=== PATIENT | female | born 1985 | race Caucasian/White ===

== ENCOUNTER 2017-12-27 08:00 | Inpatient (IN) ==
[2017-12-27] MEDS ORDERED: Metoclopramide 10 MG/2 ML VIAL IVP PRN (09:13)
[2017-12-27] MEDS ORDERED: Ondansetron 4 MG/2 ML VIAL IVP PRN (09:13)
[2017-12-27] MEDS ORDERED: Famotidine 20 MG/2 ML VIAL IVP PRN (09:13)
[2017-12-27] MEDS ORDERED: *HR* Nalbuphine 10 MG/ML AMPUL IVP PRN (09:13)
[2017-12-27] MEDS ORDERED: Ringers Solution, Lactated 1,000 ML IVC SCH (09:15)
[2017-12-27] MEDS ORDERED: Oxytocin 20 units/ LR 1000 mL 20 UNIT/1,000 ML BAG IVC SCH ×2 (09:15→20:12)
[2017-12-27] MEDS ORDERED: Penicillin G Potassium 5,000,000 UNIT in 0.9 % Sodium Chloride Mini Bag 100 ML IVPB ONE (09:30)
[2017-12-27 09:36] LABS: Basophils % 0.2 %; Eosinophils # 0.1 K/mcL (0.0-0.6); Eosinophils % 0.9 %; Hematocrit 37.8 % (35.3-44.9); Hemoglobin 12.6 g/dL (11.5-15.4); Immature Granulocytes % 0.5 % (0-4); Lymphocytes % 20.7 %; Mean Corpuscular HGB Conc 33.3 g/dL (31.6-35.5); Mean Corpuscular Volume 86.9 fL (83.0-100.0); Mean Platelet Volume 11.5 fL (9.4-12.4); Monocytes # 0.7 K/mcL (0.0-1.3); Neutrophils # 6.9 K/mcL (1.6-8.9); Platelet Count 193 K/mcL (140-400); Red Blood Count 4.35 M/mcL (3.82-4.97); Red Cell Distribution Width 14.6 % (11.5-14.5); Segmented Neutrophils % 70.7 %
[2017-12-27 10:49] LABS: Amphetamine Screen,Urine Negative ng/mL (Cutoff=1000); Barbiturate Screen,Urine Negative ng/mL (Cutoff=200); Benzodiazepines Screen,Urine Negative ng/mL (Cutoff=200); Cannabinoid Screen,Urine Negative ng/mL (Cutoff = 50); Cocaine Screen,Urine Negative ng/mL (Cutoff= 300); Opiate Screen,Urine Negative ng/mL (Cutoff=300); Phencyclidine Screen,Urine Negative ng/mL (Cutoff=25)
--- NOTE | 2017-12-27 11:44 | OB/GYN History & Physical ---
Date of Encounter: 12/27/17 Time of Encounter: 11:30 Assessment and Plan (1) 39 weeks gestation of Current visit: Yes Status: Acute (2) Elective induction of labor planned Current visit: Yes Status: Acute Admit to labor and delivery Pitocin per policy Obtain POC glucose times one Nubain and epidural as desired GBS unknown, penicillin protocol Anticipate (3) Gestational diabetes Current visit: Yes Status: Acute unmonitored and untreated in Qualifiers: Gestational diabetes mellitus control: unspecified Trimester: third trimester Qualified Code(s): O24.419 - Gestational diabetes mellitus in , unspecified control History of Present Illness Chief complaint: induction of labor HPI: Ms. Del Valle is a 32 year old female at 39+1 here for elective induction of labor. care managed by Dr. Valdez, course complicated by untreated and unmonitored gestational diabetes, patient states she does not check her blood sugars, patient states that A1c checked twice and was 5.8/6.0, no documentation of these results were found. Otherwise uncomplicated course. Patient reports good movement without vaginal bleeding, leakage of fluids, or contractions. Labs: A+, rubella and varicella immune, GBS unknown, all other serologies negative Past Med Surg Social Fam HX - Past Medical History Source: patient Medical history: no medical history Psychiatric history: no psych history - Past Surgical History Surgical History: no surgical history - Social History Smoking Status: Never smoker Smokeless Tobacco Status: No Alcohol use: none Drug use: none - Family History Maternal Grandmother Adopted: No Hx Family Cardiac Disorders: No Hx Family Respiratory Disorders: No Hx Family Cancer: Yes (lung cancer) Hx Family GI Disorders: No Hx Family Genitourinary Disorders: No Hx Family Endocrine Disorder: No Hx Family Musculoskeletal Disorders: No Hx Family Neuromuscular Disorders: No Hx Family Neurologic Disorders: No Hx Family HEENT Disorders: No Hx Family Autoimmune Disorders: No Hx Family Reproductive Disorders: No Hx Family Psychosocial Disorders: No Hx Family Medical Disorders: No Obstetrical History - Pregnancies : 2 Para: 1 Term: 0 : 1 Ab's: 0 Livin Medications and Allergies Ferrous Sulfate 12/27/17 [History] Tablet 12/27/17 [History] 3 Allergy/AdvReac Type Severity Reaction Status Date / Time No Known Allergies Allergy Verified 12/27/17 09:48 Review of System OB All systems PM: reviewed and no additional remarkable complaints except as stated Exam - Constitutional Constitutional: well developed, well nourished, no acute distress, average body habitus - Neck Neck exam: full ROM - Lungs Respiratory exam: CTAB - Cardiovascular Cardiovascular exam: RRR - Abdomen Abdomen: Present: gravid, non tender - Extremities Deep Tendon Reflex Grade: 2+ Normal Results Result Diagrams: 12/27/17 09:16 Abnormal lab results RDW 14.6 % (11.5-14.5) H 12/27/17 09:16 All other labs normal. - VTE Reasons for not Prescribing Prophylaxis: Treatment not Indicated - Low risk for VTE
[2017-12-27] MEDS ORDERED: Ringers Solution, Lactated 500 ML IVC ONE (11:59)
[2017-12-27] MEDS ORDERED: EPHEDrine 50 MG/ML VIAL IVP PRN (11:59)
--- NOTE | 2017-12-27 11:59 | Anesthesia Evaluation PreOp ---
Date of Encounter: 12/27/17 Time of Encounter: 11:58 - Past History Planned Operation: INGRID Cardiac History: Denies any Significant Hx Pulmonary History: Denies Any Significant HX DIE REAMER History: Denies Any Significant HX Other Medical History: Diabetes Type II (Gestational) Anesthesia History: No Prior Anesthetic Complications, Past Anesthesia : Yes Alcohol Use: none Drug use: none Medications and Allergies Ferrous Sulfate 12/27/17 [History] Tablet 12/27/17 [History] 3 Allergy/AdvReac Type Severity Reaction Status Date / Time No Known Allergies Allergy Verified 12/27/17 09:48 - Meds/Allergy Pre-op Review Medications Reviewed: Yes Allergies Reviewed: Yes Beta Blockers on Current Med List: No Anesthesia Results - Labs 12/27/17 09:16 Anesthesia Exam O2 Sat Height 1.65 m Weight 112 kg NPO (# of Hours): 4 Pain Scale: 3 Pain Scale Used: Numeric (1 - 10) - HEENT Pupil (Motor): Pupils equal Mallampati: II Teeth: Normal Oral Opening: Greater than 3 - DIE REAMER LOC: Oriented DIE REAMER Motor: Normal RUE, Normal LUE, Normal RLE, Normal LLE, Normal Face DIE REAMER Sensory: Normal: RUE, LUE, RLE, LLE, Face - Cardiac Rhythm: Regular Murmur: None JVD: No Carotid Bruit: No - Pulmonary Breath Sounds: bilateral Clear Respiratory Effort: Symmetrical Anesthesia Assess/Plan ASA Score: 3 (BMI 41) Modified Anju Scale for Level of Consciousness: Cooperative, oriented, and tranquil Anesthetic Plan: General (plan b), Regional (plan a) Autologous Blood: Yes Monitoring Plan: Standard Monitors Recovery Plan: PACU
[2017-12-27] MEDS ORDERED: Penicillin G Potassium 2,500,000 UNIT in 0.9 % Sodium Chloride 100 ML IVPB SCH (12:00)
[2017-12-27] MEDS ORDERED: Epidural Premix (fent/bupiv) 110 ML EP SCH (12:00)
[2017-12-27] MEDS ORDERED: Lidocaine -MPF 1% 5 ML AMPUL ONE (14:16)
--- NOTE | 2017-12-27 14:26 | Event Note ---
Date of Encounter: 12/27/17 Time of Encounter: 14:15 At bedside to evaluate patient. Patient reporting to feel mild discomfort. Reports concern for leaking. SVE performed, patient grossly ruptured (small amount), consistent with a high leak. Desires epidural. SVE: 3-4/80/-2, soft, forebag appreciated Anesthesia consulted to see patient for epidural placement. WIll recheck once patient is comfortable. AROM forebag post epidural. CAT II tracing, +accels, occasional early. MD EMI
--- NOTE | 2017-12-27 14:56 | Anesthesia Procedures ---
Date of Encounter: 12/27/17 Time of Encounter: 14:54 Procedures: Anesthesia - Epidural/Spinal Patient ID/Chart reviewed: Yes Patient examined: Yes OB Eval: Gestational age: 39.1 OB Eval: : 2 OB Eval: Hx Para: 1 OB Eval: Dilated at (cm): 4 OB Eval: Contractions: Non-stressed pattern Consent Obtained: Yes Supplemental Oxygen: None/Room Air Site Prep: Aseptic Technique, Sterile prep and drape, Povidone-Iodine 1% Patient position: upright Local Anesthetic: Lidocaine 1% Amount of Local Anesthetic used: 3 Touhy Needle Gauge: 18 Touhy Needle Depth (cm): 10 Catheter Depth at Skin (cm): 20 Test Dose (1.5% Lido + Epi): Volume given (mls): 5 Test Dose Result: Negative Loading Dose: Other: 10mls pharm bag premix Loading Dose Administered: Thru Catheter Infusion Med: 0.125% Bupivacaine w/ 2 mcg/ml Fentanyl Infusion Rate (mls/hr): 15 ([id number]) Catheter Secured in Place: Tegaderm, Tape Interspace Used: L3-L4 Loss of Resistance (ION): Yes Blood: No CSF: No Paresthesia: No Procedure: pt tolerated procedure well. no complications. vss. fhr stable.
--- NOTE | 2017-12-27 15:34 | Event Note ---
Date of Encounter: 12/27/17 Time of Encounter: 15:30 At bedside to evaluate patient after epidural. Concern for late deceleration. Plan to AROM forebag. SVE: 4-5/80/-1 No bulging bag appreciated but able to palpate membranes. Attempted (gently) to AROM forebag, appreciated thin and clear fluid. Mild amount of mucous appreciated. SVE 5-6/80/-1, soft and parous. FSE was placed as concern for late deceleration(s) difficulty keeping EFM continuous was voiced. FSE was placed without difficulty. Variable deceleration(s) appreciated with contraction(s), returns to baseline with adequate variability - reassuring. Will continue IV pitocin for now with position changes in efforts to improved tracing. Given rapid change in SVE, likely indication for variable decelerations. Dr. Valdez updated with information. Discussed the above with the patient, is aware if variable decelerations are recurrent and/or infant becomes non-reassuring - that we will need to half or turn off the IV pitocin due to distress. Plan for uncomplicated at this time. MD EMI
--- NOTE | 2017-12-27 17:48 | OB/GYN Procedure Note ---
Delivery - Delivery Date: 12/27/17 Provider: Nacho Valdez Intrapartum events: none Delivery induction: oxytocin Delivery augmentation: rupture of membranes, pitocin Delivery monitor: external FHT, external uterine Anesthesia: epidural Quantitated Blood Loss: 200 - Infant (s) Infant A Delivery Date: 12/27/17 Infant Delivery Time: 17:47 Presentation: vertex Position: OA Route of delivery: Gender: Male Viability: Viable Pounds: 8 Ounces: 7 Weight Gram: 3.83 kg at 1 minute: 8 at 5 mins: 9 Shoulder Dystocia: not encountered Specimens collected: cord blood Placenta: spontaneous Cord: 3 umbilical vessels - Repair Episiotomy: none Laceration Description: None - Complications Delivery complications: none Delivery comments: Patient was brought in for induction of labor. This patient progressed to complete and pushing she had a rapid spontaneous vaginal delivery of a male infant over an intact perineum. 's head was in the perineum without any pushing. The rest the was then delivered with 1 contraction. cried immediately upon delivery cord was clamped and cut. The infant was in past nurse in attendance after 60 seconds. Cord blood was obtained. The placenta was delivered spontaneously and intact. There are no cervical, vaginal , periurethral, or perineal lacerations noted. Patient delivered a male weight was 8 lbs. 7 oz., 3830 g. Apgars 81 minute 9 at 5 minutes. Estimated blood loss 200 mL. - Disposition Mom disposition: stable in LDR [place] disposition: stable in LDR
[2017-12-27] MEDS ORDERED: Acetaminophen 325 MG TABLET PO PRN (20:12)
[2017-12-27] MEDS ORDERED: Ibuprofen 600 MG TABLET PO PRN (20:12)
[2017-12-27] MEDS ORDERED: Lanolin 28 GM TUBE TP PRN (20:12)
[2017-12-28 05:03] LABS: Basophils % 0.2 %; Eosinophils # 0.1 K/mcL (0.0-0.6); Eosinophils % 0.9 %; Hematocrit 32.7 % (35.3-44.9); Hemoglobin 10.8 g/dL (11.5-15.4); Immature Granulocytes % 0.4 % (0-4); Lymphocytes # 2.3 K/mcL (0.6-4.6); Lymphocytes % 19.4 %; Mean Corpuscular Hemoglobin 28.8 pg (28.0-33.3); Mean Corpuscular Volume 87.2 fL (83.0-100.0); Monocytes % 8.2 %; Neutrophils # 8.4 K/mcL (1.6-8.9); Platelet Count 162 K/mcL (140-400); Red Blood Count 3.75 M/mcL (3.82-4.97); Red Cell Distribution Width 14.6 % (11.5-14.5); Segmented Neutrophils % 70.9 %
[2017-12-28 08:14] VITALS: BP 116/76
--- NOTE | 2017-12-28 08:58 | Discharge Summary ---
Date of Encounter: 12/28/17 Time of Encounter: 08:57 - Discharge Diagnosis (1) Vaginal delivery Priority: Primary Status: Acute Comments: Pain well controlled with by mouth pain meds Vital signs stable Tolerating regular diet Lochia light Ambulating independently Voiding independently Passing flatus, but no BM yet Discharge home today - Discharge Medications Prescriptions: Ibuprofen [Motrin] 600 mg PO Q6HR PRN #30 tablet PRN Reason: Cramping Docusate [Colace] 100 mg PO BID #30 capsule Home Medications: Tablet 12/27/17 [History] Acetaminophen [Tylenol] 650 mg PO Q6HR PRN tablet 12/28/17 [Rx] Docusate [Colace] 100 mg PO BID #30 capsule 12/28/17 [Rx] Ibuprofen [Motrin] 600 mg PO Q6HR PRN #30 tablet 12/28/17 [Rx] Lanolin 1 appl TP QID PRN tube 12/28/17 [Rx] Allergies/Adverse Reactions: 3 Allergy/AdvReac Type Severity Reaction Status Date / Time No Known Allergies Allergy Verified 12/27/17 09:48 Data Procedures and tests throughout hospitalization: Laboratory Tests 12/27/17 12/27/17 12/27/17 09:16 09:34 11:53 WBC 9.8 RBC 4.35 Hgb 12.6 Hct 37.8 MCV 86.9 MCH 29.0 MCHC 33.3 RDW 14.6 H Plt Count 193 MPV 11.5 Immature Gran % 0.5 Seg Neutrophils % 70.7 Lymphocytes % 20.7 Monocytes % 7.0 Eosinophils % 0.9 Basophils % 0.2 Neutrophils # 6.9 Lymphocytes # 2.0 Monocytes # 0.7 Eosinophils # 0.1 Basophils # 0.0 POC Glucose 101 H Urine Opiates Screen Negative Ur Barbiturates Screen Negative Ur Phencyclidine Scrn Negative Ur Amphetamines Screen Negative U Benzodiazepines Scrn Negative Urine Cocaine Screen Negative U Marijuana (THC) Screen Negative Ur Drug Screen Interp See Below 12/28/17 03:45 WBC 11.8 H RBC 3.75 L Hgb 10.8 L D Hct 32.7 L MCV 87.2 MCH 28.8 MCHC 33.0 RDW 14.6 H Plt Count 162 MPV 12.0 Immature Gran % 0.4 Seg Neutrophils % 70.9 Lymphocytes % 19.4 Monocytes % 8.2 Eosinophils % 0.9 Basophils % 0.2 Neutrophils # 8.4 Lymphocytes # 2.3 Monocytes # 1.0 Eosinophils # 0.1 Basophils # 0.0 POC Glucose Urine Opiates Screen Ur Barbiturates Screen Ur Phencyclidine Scrn Ur Amphetamines Screen U Benzodiazepines Scrn Urine Cocaine Screen U Marijuana (THC) Screen Ur Drug Screen Interp Labs on day of discharge: Labs from last 24 hours 12/28/17 12/27/17 12/27/17 03:45 11:53 09:34 WBC 11.8 H RBC 3.75 L Hgb 10.8 L D Hct 32.7 L MCV 87.2 MCH 28.8 MCHC 33.0 RDW 14.6 H Plt Count 162 MPV 12.0 Immature Gran % 0.4 Seg Neutrophils % 70.9 Lymphocytes % 19.4 Monocytes % 8.2 Eosinophils % 0.9 Basophils % 0.2 Neutrophils # 8.4 Lymphocytes # 2.3 Monocytes # 1.0 Eosinophils # 0.1 Basophils # 0.0 POC Glucose 101 H Urine Opiates Screen Negative Ur Barbiturates Screen Negative Ur Phencyclidine Scrn Negative Ur Amphetamines Screen Negative U Benzodiazepines Scrn Negative Urine Cocaine Screen Negative U Marijuana (THC) Screen Negative Ur Drug Screen Interp See Below 12/27/17 09:16 WBC 9.8 RBC 4.35 Hgb 12.6 Hct 37.8 MCV 86.9 MCH 29.0 MCHC 33.3 RDW 14.6 H Plt Count 193 MPV 11.5 Immature Gran % 0.5 Seg Neutrophils % 70.7 Lymphocytes % 20.7 Monocytes % 7.0 Eosinophils % 0.9 Basophils % 0.2 Neutrophils # 6.9 Lymphocytes # 2.0 Monocytes # 0.7 Eosinophils # 0.1 Basophils # 0.0 POC Glucose Urine Opiates Screen Ur Barbiturates Screen Ur Phencyclidine Scrn Ur Amphetamines Screen U Benzodiazepines Scrn Urine Cocaine Screen U Marijuana (THC) Screen Ur Drug Screen Interp Date of admission: 12/27/17 08:39 Primary care physician: NELSON Mead Consults: 12/27/17 20:12 Consult to Noc Analyst [CONS] Routine Comment: Vaginal delivery, consult needed Discharging clinician: Claire Garner Anticipated date of discharge: 12/28/17 - Patient Status Disposition: Home, Self-Care Condition: Good Functional capacity at discharge: independent ambulation Overall status at discharge: patient is progressing back to baseline - Discharge Instructions Follow Up With: Ebonie Jones CNP [Primary Care Provider] - Nacho Valdez MD [Partnered Physician] - - Diet and Activity Activity: increase activity as tolerated Diet: regular diet Hospital Course Reason for admission: active labor, induction of labor, IUP at term Delivery: Episiotomy: none Laceration: none Other procedures: none complications: none Discharge diagnosis: IUP at term delivered baby: male Time Attestation: Total time spent providing and/or coordinating discharge services: Time Spent: Less than 30 minutes Exam - Constitutional Vitals: Temp Pulse Resp BP Pulse Ox 98.1 F 78 16 116/76 98 12/28/17 08:13 12/28/17 08:13 12/28/17 08:31 12/28/17 08:13 12/28/17 08:13 General appearance IM: A&O X 3 - Respiratory Respiratory exam: Present: CTAB - Cardiovascular Cardiovascular exam IM: Present: RRR, +S1, +S2 - GI/Abdominal GI/Abdominal exam IM: normal bowel sounds, no peritoneal signs - Rectal Rectal exam: deferred - Uterine Tone: Firm Uterus Position: 2 Fingers Below Umbilicus, Midline - Extremities Exam Extremities exam IM: Present: normal capillary refill, normal inspection, radial pulses palpable and symmetrical - Neurological Exam Neurological exam: alert, CN II-XII intact, normal gait, oriented X3, reflexes normal, no focal deficits, strengths equal and symetr throughout - Psychiatric Additional comments: Patient reports history of depression. Signs and symptoms of depression discussed with patient and partner and both verbalize understanding of when to seek help.
[2017-12-28] MEDS ORDERED: Prenatal Vit/FA 1 EACH TABLET PO SCH (09:00)
== END 2017-12-28 12:30 | disposition home or self-care (01) | DRG 775 ==
LOC: 1NENULAB 08:39 → 1NENUOBS 20:19
PROVIDERS: ADMIT Obstetrics & Gynecology; ATTEND Obstetrics & Gynecology